=== PATIENT | female | born 1985 | race African-American/Black ===

== ENCOUNTER 2021-01-11 17:30 | Observation (INO) | payer OTHER ==
--- NOTE | 2021-01-11 18:29 | XR ---
EXAMINATION TYPE: XR cervical spine trauma DATE OF EXAM: 01/11/2021 COMPARISON: None HISTORY: Trauma TECHNIQUE: Five-view cervical spine FINDINGS: The prevertebral space at the C4 level is somewhat prominent. The C5 prevertebral space sup eriorly appears somewhat prominent. Vertebral body heights are preserved. There is slight kyphosis ce ntered at C4-5. Posterior spinal lamellar line is intact. Side bending towards the left is noted. For amen are patent. Odontoid is limited with overlying maxilla. Disc heights appear preserved. IMPRESSION: 1. There may be some mild soft tissue prominence at the C4-[address] cervical spine for a dditional evaluation.
--- NOTE | 2021-01-11 18:30 | XR ---
EXAMINATION TYPE: XR shoulder complete LT DATE OF EXAM: 01/11/2021 COMPARISON: NONE HISTORY: Pain TECHNIQUE: Shoulder examined in 3 views FINDINGS: The humeral head articulates with the glenoid. The acromio-clavicular junction is normal. No acute fractures or dislocations are evident. A follow up study can be performed 7-10 days from acute trauma for continued pain. IMPRESSION: 1. Normal three-view left Shoulder
--- NOTE | 2021-01-11 18:53 | ED ---
General Adult HPI - General Chief complaint: Extremity Injury, Upper Stated complaint: Shoulder pain Time Seen by Provider: 01/11/21 17:54 Source: patient, RN notes reviewed, old records reviewed Mode of arrival: ambulatory Limitations: no limitations - History of Present Illness Initial comments: 35-year-old female presenting with fall which she states occurred 2 days ago. Patient states she fell down the stairs but she is unable to give a clear his tory of exactly what happened. She is complaining of left arm pain and neck pain. Patient uncertain if she lost consciousness. She denies anticoagulation. History is limited. - Related Data Allergies Allergy/AdvReac Type Severity Reaction Status Date / Time No Known Allergies Allergy Verified 01/11/21 17:40 Review of Systems ROS Statement: Those systems with pertinent positive or pertinent negative responses have been documented in the HPI. ROS Other: All systems not noted in ROS Statement are negative. Past Medical History Past Medical History: No Reported History History of Any Multi-Drug Resistant Organisms: None Reported Past Surgical History: No Surgical Hx Reported Past Psychological History: No Psychological Hx Reported Smoking Status: Never smoker Past Alcohol Use History: None Reported Past Drug Use History: None Reported General Exam Limitations: no limitations General appearance: alert, other (Patient will not make eye contact,) Head exam: Present: atraumatic, normocephalic Eye exam: Present: normal appearance, PERRL ENT exam: Present: normal exam Neck exam: Present: tenderness (Paraspinal and left trapezius) Respiratory exam: Present: normal lung sounds bilaterally, chest wall tenderness. Absent: respiratory distress, wheezes Cardiovascular Exam: Present: regular rate, normal rhythm GI/Abdominal exam: Present: soft. Absent: distended, tenderness Extremities exam: Absent: full ROM (Decreased range of motion of the left shoulder secondary to pain, normal undergraduate advisor strength, she does have bruising on the bilateral upper extremities. Distal pulses 2+) Back exam: Present: other (Ecchymosis, left upper back) Neurological exam: Present: alert, normal gait. Absent: motor sensory deficit Psychiatric exam: Present: flat affect Skin exam: Present: warm, dry, intact Course Vital Signs 01/11/21 17:38 Temperature 98.8 F Pulse Rate 76 Respiratory 20 Rate Blood Pressure 124/76 O2 Sat by Pulse 97 Oximetry Medical Decision Making - Medical Decision Making 35-year-old female presenting status post fall. History is unclear of the timing and specific injuries that occurred. The patient has bruising throughout her back, abdomen, bilateral upper extremities these appear to be in various stages of healing. Patient will not give a clear history. X-rays are obtained, of the cervical spine and left shoulder. There is concern for soft tissue abnormality on x-rays a CT is performed of both the brain and cervical spine which is negative for acute findings. Case has been discussed with Dr. Zepeda. Social work will be asked to consult on this patient. She will be admitted for further evaluation and treatment. - Lab Data Result diagrams: 01/11/21 18:56 01/11/21 18:56 Lab Results 01/11/21 01/11/21 01/11/21 Range/Units 18:56 18:56 19:00 WBC 9.2 (3.8-10.6) k/uL RBC 4.48 (3.80-5.40) m/uL Hgb 12.6 (11.4-16.0) gm/dL Hct 37.7 (34.0-46.0) % MCV 84.1 (80.0-100.0) fL MCH 28.2 (25.0-35.0) pg MCHC 33.6 (31.0-37.0) g/dL RDW 13.3 (11.5-15.5) % Plt Count 441 (150-450) k/uL MPV 6.6 Neutrophils % 58 % Lymphocytes % 33 % Monocytes % 4 % Eosinophils % 3 % Basophils % 1 % Neutrophils # 5.4 (1.3-7.7) k/uL Lymphocytes # 3.0 (1.0-4.8) k/uL Monocytes # 0.4 (0-1.0) k/uL Eosinophils # 0.3 (0-0.7) k/uL Basophils # 0.1 (0-0.2) k/uL Sodium 137 (137-145) mmol/L Potassium 3.5 (3.5-5.1) mmol/L Chloride 99 (98-107) mmol/L Carbon Dioxide 26 (22-30) mmol/L Anion Gap 12 mmol/L BUN 23 H (7-17) mg/dL Creatinine 0.60 (0.52-1.04) mg/dL Est GFR (CKD-EPI)AfAm >90 (>60 ml/min/1.73 sqM) Est GFR (CKD-EPI)NonAf >90 (>60 ml/min/1.73 sqM) Glucose 93 (74-99) mg/dL Calcium 10.0 (8.4-10.2) mg/dL Total Bilirubin 2.2 H (0.2-1.3) mg/dL AST 34 (14-36) U/L ALT 31 (4-34) U/L Alkaline Phosphatase 63 (38-126) U/L Total Protein 7.9 (6.3-8.2) g/dL Albumin 4.7 (3.5-5.0) g/dL Urine Color Yellow Urine Appearance Cloudy H (Clear) Urine pH 6.0 (5.0-8.0) Ur Specific [place] 1.030 (1.001-1.035) Urine Protein 1+ H (Negative) Urine Glucose (UA) Negative (Negative) Urine Ketones 4+ H (Negative) Urine Blood Trace H (Negative) Urine Nitrite Positive H (Negative) Urine Bilirubin Negative (Negative) Urine Urobilinogen 3.0 (<2.0) mg/dL Ur Leukocyte Esterase Small H (Negative) Urine RBC <1 (0-5) /hpf Urine WBC 8 H (0-5) /hpf Ur Squamous Epith Cells 8 H (0-4) /hpf Urine Bacteria Many H (None) /hpf Urine Mucus Many H (None) /hpf Urine HCG, Qual (Not Detectd) 01/11/21 Range/Units 19:00 WBC (3.8-10.6) k/uL RBC (3.80-5.40) m/uL Hgb (11.4-16.0) gm/dL Hct (34.0-46.0) % MCV (80.0-100.0) fL MCH (25.0-35.0) pg MCHC (31.0-37.0) g/dL RDW (11.5-15.5) % Plt Count (150-450) k/uL MPV Neutrophils % % Lymphocytes % % Monocytes % % Eosinophils % % Basophils % % Neutrophils # (1.3-7.7) k/uL Lymphocytes # (1.0-4.8) k/uL Monocytes # (0-1.0) k/uL Eosinophils # (0-0.7) k/uL Basophils # (0-0.2) k/uL Sodium (137-145) mmol/L Potassium (3.5-5.1) mmol/L Chloride (98-107) mmol/L Carbon Dioxide (22-30) mmol/L Anion Gap mmol/L BUN (7-17) mg/dL Creatinine (0.52-1.04) mg/dL Est GFR (CKD-EPI)AfAm (>60 ml/min/1.73 sqM) Est GFR (CKD-EPI)NonAf (>60 ml/min/1.73 sqM) Glucose (74-99) mg/dL Calcium (8.4-10.2) mg/dL Total Bilirubin (0.2-1.3) mg/dL AST (14-36) U/L ALT (4-34) U/L Alkaline Phosphatase (38-126) U/L Total Protein (6.3-8.2) g/dL Albumin (3.5-5.0) g/dL Urine Color Urine Appearance (Clear) Urine pH (5.0-8.0) Ur Specific [place] (1.001-1.035) Urine Protein (Negative) Urine Glucose (UA) (Negative) Urine Ketones (Negative) Urine Blood (Negative) Urine Nitrite (Negative) Urine Bilirubin (Negative) Urine Urobilinogen (<2.0) mg/dL Ur Leukocyte Esterase (Negative) Urine RBC (0-5) /hpf Urine WBC (0-5) /hpf Ur Squamous Epith Cells (0-4) /hpf Urine Bacteria (None) /hpf Urine Mucus (None) /hpf Urine HCG, Qual Not Detected (Not Detectd) Disposition Clinical Impression: Strain of shoulder, UTI (urinary tract infection), Cervical strain, acute Disposition: ADMITTED IP TO THIS HOSP Condition: Stable Is patient prescribed a controlled substance at d/c from ED?: No Referrals: None,Stated [Primary Care Provider] - 1-2 days Decision to Admit Reason: Admit from EC Decision Date: 01/11/21 Decision Time: 20:53
[2021-01-11 19:10] LABS: Basophils # (A) 0.1 k/uL (0-0.2); Basophils % (A) 1 %; Eosinophils # (A) 0.3 k/uL (0-0.7); Eosinophils % (A) 3 %; HCT 37.7 % (34.0-46.0); HGB 12.6 gm/dL (11.4-16.0); Lymphocytes % (A) 33 %; MCH 28.2 pg (25.0-35.0); MCHC 33.6 g/dL (31.0-37.0); MCV 84.1 fL (80.0-100.0); Mean Platelet Volume 6.6; Monocytes # (A) 0.4 k/uL (0-1.0); Monocytes % (A) 4 %; Neutrophils # (A) 5.4 k/uL (1.3-7.7); Neutrophils % (A) 58 %; Platelet Count 441 k/uL (150-450); RBC 4.48 m/uL (3.80-5.40); RDW 13.3 % (11.5-15.5); WBC 9.2 k/uL (3.8-10.6)
[2021-01-11 19:24] LABS: ALT 31 U/L (4-34); AST 34 U/L (14-36); African American GFR (CKD) >90 (>60 ml/min/1.73 sqM); Albumin 4.7 g/dL (3.5-5.0); Alkaline Phosphatase 63 U/L (38-126); Anion Gap 12 mmol/L; Blood Urea Nitrogen 23 mg/dL (7-17); Carbon Dioxide 26 mmol/L (22-30); Chloride 99 mmol/L (98-107); Glucose 93 mg/dL (74-99); Non-African American GFR(CKD) >90 (>60 ml/min/1.73 sqM); Potassium 3.5 mmol/L (3.5-5.1); Sodium 137 mmol/L (137-145); Total Bilirubin 2.2 mg/dL (0.2-1.3); Total Protein 7.9 g/dL (6.3-8.2)
--- NOTE | 2021-01-11 19:36 | CT ---
EXAMINATION TYPE: CT brain cspine wo con DATE OF EXAM: 01/11/2021 COMPARISON: None HISTORY: Fall x2 days. CT DLP: 1301 mGycm, Automated exposure control for dose reduction was used. CONTRAST: None CT of the brain is performed utilizing 3 mm thick sections through the posterior fossa and 3 mm thick sections through the remaining calvarium. Study is performed within 24 hours of arrival to the hospital. No abnormal hyperdensity is present to suggest an acute intracranial hemorrhage. No mass lesion is evident. No acute infarcts are evident. Ventricles and sulci are appropriate for the patient age. Paranasal sinuses and mastoid air cells within the [id number] are clear. IMPRESSIONS: 1. Normal CT brain. CT cervical spine. COMPARISON: None CT of the cervical spine is performed in the axial plane at 2 mm thick sections. Reconstructed image s in the coronal, and sagittal plane are reviewed on the computer. No acute fractures are evident. Vertebral body alignment is straightened. The prevertebral space is remain somewhat prominent at the C4-C5 levels. However, no underlying soft tissue abnormality is evident. No underlying osseous abnorm ality is evident at this level. Disc heights are preserved. Vertebral body heights are preserved. No spinal canal stenosis is evident. No neural foraminal stenosis is evident. IMPRESSIONS: 1. Normal CT cervical spine. No acute fractures are evident. 2. No suspicious etiology to account for the apparent soft tissue swelling prevertebral space.
[2021-01-11 19:43] LABS: Appearance,Urine Cloudy (Clear); Bacteria,Urine Many /hpf; Bilirubin,Urine Negative (Negative); Blood,Urine Trace (Negative); Color,Urine Yellow; Glucose,Urine (UA) Negative (Negative); Ketones,Urine 4+ (Negative); Leukocyte Esterase,Urine Small (Negative); Mucus,Urine Many /hpf; Nitrite,Urine Positive (Negative); Protein,Urine 1+ (Negative); RBC,Urine <1 /hpf (0-5); Squamous Epithelial Cell,Urine 8 /hpf (0-4); WBC,Urine 8 /hpf (0-5)
[2021-01-11] MEDS ORDERED: NALOXONE 0.4 MG/ML 1 ML VIAL IV PRN (20:48)
[2021-01-11] MEDS ORDERED: KETOROLAC 15 MG/ML 1 ML VIAL IVP PRN (20:48)
[2021-01-11] MEDS ORDERED: ACETAMINOPHEN TAB 325 MG TAB PO PRN (20:48)
[2021-01-11] MEDS ORDERED: cefTRIAXone IN SWFI 1,000 MG/10 ML SYRINGE IVP STA (20:48)
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
[2021-01-12 07:54] VITALS: BP 121/74; PULSE 62; RESP 16; TEMP 98.6
[2021-01-12] MEDS ORDERED: HEPARIN SODIUM,PORCINE/PF 5,000 UNIT/0.5 ML SYRINGE SQ SCH (08:00)
--- NOTE | 2021-01-12 11:44 | P.DS ---
Providers Date of admission: 01/11/21 20:48 Expected date of discharge: 01/12/21 Attending physician: Cheng Zepeda MD Primary care physician: Stated None Hospital Course: This is a 35-year-old female with no past medical history who presented to the emergency room with left shoulder pain after sustaining a fall at home. Patient was evaluated in the ER and underwent a computed tomography scan of the head and cervical spine as well as an x-ray of the left shoulder. All of her imaging was unremarkable for any acute findings. Her lab work was within normal range. Patient was placed on observation. Her overall condition improved sig nificantly. She will be discharged home in a stable condition. She will follow-up with her PCP as directed. Patient Condition at Discharge: Stable Plan - Discharge Summary Discharge Rx Participant: No New Discharge Prescriptions: No Action No Known Home Medications Discharge Medication List No Known Home Medications 01/11/21 [History] Follow up Appointment(s)/Referral(s): None,Stated [Primary Care Provider] - 1-2 days Discharge Disposition: HOME SELF-CARE
== END 2021-01-12 14:30 | disposition home or self-care (01) ==
LOC: EC 17:30 → 6NMEDSUR 20:48 → 1SOBS 22:47
PROVIDERS: ADMIT Internal Medicine; ATTEND Internal Medicine
DX: M25.512 Pain in left shoulder (principal); M54.2 Cervicalgia; R82.90 Unspecified abnormal findings in urine; W10.9XXA Fall (on) (from) unspecified stairs and steps, initial encounter; Y92.009 Unspecified place in unspecified non-institutional (private) residence as the place of occurrence of the external cause; Z20.822 Contact with and (suspected) exposure to COVID-19
CPT/HCPCS: 96372; 96374; 96375; 99285; 36415; 80053; 85025; 81001; 81025; 87635; 72050; 73030; 72125; 70450; G0378 ×3; J0696; J1885; J1644

== ENCOUNTER 2021-02-08 13:20 | Emergency (ER) | payer OTHER ==
[2021-02-08 13:27] VITALS: BP 110/55; PULSE 65; RESP 16; TEMP 98
--- NOTE | 2021-02-08 14:20 | XR ---
EXAMINATION TYPE: XR shoulder complete LT DATE OF EXAM: 02/08/2021 COMPARISON: 01/11/2021 HISTORY: Shoulder pain. Trauma. TECHNIQUE: 3 views FINDINGS: I see no fracture nor dislocation. Joint spaces are normal. There are no pathologic calcifi cations. Soft tissues appear normal. IMPRESSION: Negative left shoulder exam. No fracture.
--- NOTE | 2021-02-08 14:32 | ED ---
Upper Extremity HPI - General Chief Complaint: Extremity Injury, Upper Stated Complaint: Lft shoulder pain Time Seen by Provider: 02/08/21 13:37 Source: patient Mode of arrival: ambulatory Limitations: no limitations - History of Present Illness Initial Comments: 35-year-old female presenting today for chief complaint of left shoulder pain. Patient states that she had injury about a month ago where she fell down the steps. Patient states she continues to have left shoulder pain. Patient states that time she is tingling in her fingers. She denies any neck pain or difficulty ranging at the cervical spine. Patient states she did have imaging of the upper neck at that time. Patient states she thought to be better by now. Patient states she has not been able to get into an orthopedic surgeon because she doesnt want to drive back to [place]. patient has no additional complaints Denies chest pain, dyspnea. - Related Data Home Medications Medication Instructions Recorded Confirmed No Known Home Medications 01/11/21 02/08/21 Allergies Allergy/AdvReac Type Severity Reaction Status Date / Time No Known Allergies Allergy Verified 02/08/21 14:11 Review of Systems ROS Statement: Those systems with pertinent positive or pertinent negative responses have been documented in the HPI. ROS Other: All systems not noted in ROS Statement are negative. Past Medical History Past Medical History: No Reported History History of Any Multi-Drug Resistant Organisms: None Reported Past Surgical History: No Surgical Hx Reported Past Psychological History: No Psychological Hx Reported Smoking Status: Never smoker Past Alcohol Use History: None Reported Past Drug Use History: None Reported General Exam - General Exam Comments Initial Comments: General: The patient is awake and alert, in no distress Eye: +3 mm pupils are equal, round and reactive to light, extra-ocular movements are intact. No nystagmus. There is normal conjunctiva bilaterally. No signs of icterus. Ears, nose, mouth and throat: There are moist mucous membranes and no oral lesions. Neck: The neck is supple, there is no tenderness or JVD. Cardiovascular: There is a regular rate and rhythm. No murmur, rub or gallop is appreciated. Respiratory: Lungs are clear to auscultation, respirations are non-labored, breath sounds are equal. No wheezes, stridor, rales, or rhonchi. Gastrointestinal: Soft, non-distended, non-tender abdomen without masses or organomegaly noted. There is no rebound or guarding present. Musculoskeletal: Normal ROM of the left shoulder however there is significant tenderness with overhead range of motion and palpation over the AC joint. Strength 5/5 of the upper extremities including at the left shoulder. Sensation intact including the pad region. radial pulses equal bilaterally 2+. Patient failed to make the okay fingers crossed thumbs-up and oppose the small digit and thumb extend at the wrist there is evidence of wristdrop Neurological: A&O x 3. CN II-XII intact grossly, There are no obvious motor or sensory deficits. Coordination appears grossly intact. Speech is normal. Skin: Skin is warm and dry and no rashes or lesions are noted. Psychiatric: Cooperative, appropriate mood & affect, normal judgment. Limitations: no limitations Course Vital Signs 02/08/21 13:22 Temperature 98.0 F Pulse Rate 65 Respiratory 16 Rate Blood Pressure 110/55 O2 Sat by Pulse 97 Oximetry Medical Decision Making - Medical Decision Making XR (-). pt placed in sling for comfort. recommended orthopedic f/u. outpatient MRI and return for worsening symptoms as patient is neurovascularly intact with no new injury Disposition Clinical Impression: Left shoulder pain Disposition: HOME SELF-CARE Condition: Good Instructions (If sedation given, give patient instructions): Acromioclavicular Separation (ED) Additional Instructions: Please use medication as discussed. Please follow-up with family doctor in the next 2 days as well as orthopedic surgery. Please return to emergency room if the symptoms increase or worsen or for any other concerns. Is patient prescribed a controlled substance at d/c from ED?: No Referrals: None,Stated [Primary Care Provider] - 1-2 days Yordan Santiago MD [STAFF PHYSICIAN] - 1-2 days Time of Disposition: 14:31
== END 2021-02-08 14:49 | disposition home or self-care (01) ==
LOC: EC 13:20
DX: M25.512 Pain in left shoulder (principal); M21.332 Wrist drop, left wrist
CPT/HCPCS: 99283